=== PATIENT | female | born 1975 | race Caucasian/White ===

== ENCOUNTER 2018-06-28 09:39 | Emergency (ER) | payer MEDICAID ==
[2018-06-28] MEDS ORDERED: LORazepam 1 MG TAB PO PRN (09:45)
[2018-06-28] MEDS ORDERED: chlordiazePOXIDE 25 MG CAP PO ONE (09:45)
[2018-06-28] MEDS ORDERED: LORazepam 2 MG/ML INJ IVP PRN (09:45)
--- NOTE | 2018-06-28 09:45 | EDPHY ---
H & P Source: Patient, EMS Exam Limitations: No limitations Time Seen by Provider: 06/28/18 09:40 HPI/ROS: HPI: This is a 42-year-old female who presents with Chief Complaint: Alcohol withdrawal, request for detox Location: Body Quality: Alcohol abuse, alcohol withdrawal Duration: Less than 12 hr Signs and Symptoms: no fever, + nausea, no vomiting, no hematemesis, no blood in stool, no abdominal bloating, no diarrhea, no back pain, no urinary symptoms , no vaginal bleeding/discharge, no indigestion, no chest pain, no shortness of breath, + anxiety, + tactile disturbances Timing: Acute on chronic Severity: Moderate to severe Context: Patient presents via EMS with complaints of alcohol withdrawal since this morning. She reports that Thursday and Thursday she drank approximately half a gallon of vodka daily. Her last drink was 9:00 p.m. last night. She has a history of alcohol withdrawal but denies any alcohol withdrawal seizures or requiring hospitalization. Patient was discharged on Thursday from [facility] for alcohol detox as she was afraid that she would lose her job. She has now obtained medical leave. She followed up with outpatient clinic, [place], this morning at [facility] and [place], and they called EMS as patient was going through alcohol withdrawal. She has been to [facility] in February and March and wishes to return. She has a strong support system and lives with her sister. Denies any vomiting, abdominal pain, fevers, mental status changes. Patient denies homicidal ideation, suicidal ideation. Modifying Factors: EMS gave Versed 2 mg with moderate relief of symptoms Comment: ROS: A comprehensive 10 system review of systems is otherwise negative aside from elements mentioned in the history of present illness. MEDICAL/SURGICAL/SOCIAL HISTORY: Medical history: Alcohol abuse, major depression, asthma Surgical history: Denies Social history: Employed. Heavy smoker. Family history noncontributory. CONSTITUTIONAL: Polite and cooperative middle-aged white female, awake and alert, no obvious distress HEENT: Atraumatic and normocephalic, PERRL, EOMI. Nares patent; no rhinorrhea; no nasal mucosal edema. Tympanic membranes clear. Oropharynx clear, no exudate and moist pink mucosa. Airway patent. No lymphadenopathy. No meningismus. Cardiovascular: Normal S1/S2, regular rate, regular rhythm, without murmur rub or gallop. PULMONARY/CHEST: Symmetrical and nontender. Clear to auscultation bilaterally. Good air movement. No accessory muscle usage. ABDOMEN: Soft, nondistended, nontender, no rebound, no guarding, no peritoneal signs, no masses or organomegaly. No CVAT. EXTREMITIES: 2/2 pulses, strength 5/5, no deformities, no clubbing, no cyanosis or edema. NEUROLOGICAL: no focal neuro deficits. GCS 15. Speech clear. Mild hand tremors noted bilaterally. SKIN: Warm and dry, no erythema. no rash. Good capillary refill. (Lizzie Gibbs) Constitutional: Initial Vital Signs Heart Rate 81 06/28/18 09:43 Respiratory Rate 16 06/28/18 09:43 Blood Pressure 109/78 06/28/18 09:43 O2 Sat (%) 95 06/28/18 09:43 O2 Delivery Mode Room Air Allergies/Adverse Reactions: cephalexin [From Keflex] Allergy (Verified 06/28/18 09:46) erythromycin base Allergy (Verified 06/28/18 09:46) Sulfa (Sulfonamide Antibiotics) Allergy (Verified 06/28/18 09:46) Home Medications: Medication Instructions Recorded Lexapro 06/28/18 Naltrexone 06/28/18 Ondansetron Odt [Zofran Odt 4 mg 4 mg PO Q4 PRN #12 tab 06/28/18 (*)] Propranolol HCl 06/28/18 chlordiazePOXIDE [Librium 25 mg 25 - 50 mg PO Q6 PRN #15 cap 06/28/18 (*)] Medical Decision Making ED Course/Re-evaluation: I did not see this patient while she was in the emergency department. However her care was discussed with the PA while the patient was in the department. I agree with treatment plan and management (Alex Corona) Vital signs reviewed and stable upon arrival. Placed on saw boss. Given 1 L normal saline, p.o. Librium 50 mg CIWA= 4 upon arrival IV access, laboratory studies, urine drug screen ordered Case management consult for patient to return to the [facility] No signs of delirium tremens, alcohol withdrawal seizures 1022: Urine drug screen positive for benzodiazepines 1033: Laboratory studies reviewed and grossly unremarkable. ETOH=16 1110: [facility] advises that she can be admitted to the facility next Thursday; in 7 days. Sister contracts for the patient's safety and I will give Librium for the next several days for alcohol withdrawal symptoms. This patient was seen under the supervision of my secondary supervising physician. I evaluated and cared for this patient with attending. (Lizzie Gibbs) Differential Diagnosis: Differential diagnosis includes but is not limited to pancreatitis, electrolyte imbalance, dehydration, alcohol withdrawal, delirium tremens, alcohol withdrawal seizures. (Lizzie Gibbs) - Data Points Laboratory Results: Laboratory Results 06/28/18 10:05 06/28/18 10:05 06/28/18 06/28/18 06/28/18 10:05 10:05 10:05 WBC 11.23 10^3/uL H 10^3/uL (3.80-9.50) RBC 5.35 10^6/uL H 10^6/uL (4.18-5.33) Hgb 16.2 g/dL g/dL (12.6-16.3) Hct 48.0 % H % (38.0-47.0) MCV 89.7 fL fL (81.5-99.8) MCH 30.3 pg pg (27.9-34.1) MCHC 33.8 g/dL g/dL (32.4-36.7) RDW 13.5 % % (11.5-15.2) Plt Count 335 10^3/uL 10^3/uL (150-400) MPV 9.4 fL fL (8.7-11.7) Neut % (Auto) 75.0 % H % (39.3-74.2) Lymph % (Auto) 17.5 % % (15.0-45.0) [place] % (Auto) 5.7 % % (4.5-13.0) Eos % (Auto) 0.7 % % (0.6-7.6) Baso % (Auto) 0.7 % % (0.3-1.7) Nucleat RBC Rel Count 0.0 % % (0.0-0.2) Absolute Neuts (auto) 8.43 10^3/uL H 10^3/uL (1.70-6.50) Absolute Lymphs (auto) 1.96 10^3/uL 10^3/uL (1.00-3.00) Absolute Monos (auto) 0.64 10^3/uL 10^3/uL (0.30-0.80) Absolute Eos (auto) 0.08 10^3/uL 10^3/uL (0.03-0.40) Absolute Basos (auto) 0.08 10^3/uL 10^3/uL (0.02-0.10) Absolute Nucleated RBC 0.00 10^3/uL 10^3/uL (0-0.01) Immature Gran % 0.4 % % (0.0-1.1) Immature Gran # 0.04 10^3/uL 10^3/uL (0.00-0.10) Sodium 136 mEq/L mEq/L (135-145) Potassium 4.6 mEq/L mEq/L (3.5-5.2) Chloride 103 mEq/L mEq/L (97-110) Carbon Dioxide 21 mEq/l L mEq/l (22-31) Anion Gap 12 mEq/L mEq/L (6-14) BUN 13 mg/dL mg/dL (7-23) Creatinine 0.7 mg/dL mg/dL (0.6-1.0) Estimated GFR > 60 Glucose 89 mg/dL mg/dL (70-100) Calcium 9.7 mg/dL mg/dL (8.5-10.4) Beta HCG, Qual NEGATIVE Urine Opiates Screen Urine Barbiturates Ur Phencyclidine Scrn Ur Amphetamine Screen U Benzodiazepines Scrn Urine Cocaine Screen U Marijuana (THC) Screen Ethyl Alcohol 16 mg/dL H mg/dL (0-10) 06/28/18 09:50 WBC RBC Hgb Hct MCV MCH MCHC RDW Plt Count MPV Neut % (Auto) Lymph % (Auto) [place] % (Auto) Eos % (Auto) Baso % (Auto) Nucleat RBC Rel Count Absolute Neuts (auto) Absolute Lymphs (auto) Absolute Monos (auto) Absolute Eos (auto) Absolute Basos (auto) Absolute Nucleated RBC Immature Gran % Immature Gran # Sodium Potassium Chloride Carbon Dioxide Anion Gap BUN Creatinine Estimated GFR Glucose Calcium Beta HCG, Qual Urine Opiates Screen NEGATIVE (NEGATIVE) Urine Barbiturates NEGATIVE (NEGATIVE) Ur Phencyclidine Scrn NEGATIVE (NEGATIVE) Ur Amphetamine Screen NEGATIVE (NEGATIVE) U Benzodiazepines Scrn NON-NEGATIVE H (NEGATIVE) Urine Cocaine Screen NEGATIVE (NEGATIVE) U Marijuana (THC) Screen NEGATIVE (NEGATIVE) Ethyl Alcohol Medications Given: Discontinued Medications Chlordiazepoxide HCl (Librium) 50 mg PO EDNOW ONE Stop: 06/28/18 09:46 Last Admin: 06/28/18 10:21 Dose: 50 mg Departure - Departure Disposition: Home, Routine, Self-Care Clinical Impression: Alcohol abuse, daily use, Alcohol withdrawal syndrome without complication Condition: Good Instructions: Abuse of Alcohol (ED), Alcohol Withdrawal (ED), Alcohol Use Disorder (ED) Additional Instructions: Please refrain from using alcohol excessively. Consume a minimum of 8-10 glasses of water or electrolyte fluid replacement drinks that include Gatorade, Powerade, Pedialyte. Eat a bland diet for the next 48 hours and then slowly advance as tolerated. Take Zofran 1 tab every 4 hours as needed for nausea, vomiting. Take Librium 25-50 mg every 6 hr as needed for alcohol withdrawal symptoms. [facility] are [facility] as you are waiting to be admitted to [facility] next Thursday, July 05. Referrals: Patient,NotPresent [Unknown] - As per Instructions [facility] 24 Hours [Outside] - As per Instructions Prescriptions: chlordiazePOXIDE [Librium 25 mg (*)] 25 - 50 mg PO Q6 PRN #15 cap PRN Reason: Seizures Ondansetron Odt [Zofran Odt 4 mg (*)] 4 mg PO Q4 PRN #12 tab PRN Reason: Nausea/Vomiting, Use 1st
[2018-06-28 10:10] LABS: PLATELET COUNT 335 10^3/uL (150-400)
[2018-06-28 11:41] VITALS: BP 129/73
--- NOTE | 2018-06-28 11:57 | ASMTCMCOM ---
CM Note CM Note Notes: Pt presented to the ED for ETOH withdrawal. Pt's last drink was last night. Pt states she drink about "1/2 gallon" of vodka a day. Pt denies any other drug or substance use. Pt denies any mental health history and denies SI/HI. Pt states she left [facility] after being there for only one day about a week ago because she was afraid of losing her job. Pt then relapsed in the past 5-6 days and has been drinking daily again. Pt states her employer has now granted her a leave of absence and is supportive of her seeking treatment. Pt states she went to her intake appt at [facility] ([facility]) in [place] ([phone]) today but because she had started drinking again and is not medically detoxed/stable, they said she will have to go through detox again and make another intake appt. Pt states she has detoxed at home in the past and would prefer to be sent home with Librium if possible. Pt lives with her sister Tiffanie in [place] and also states she has a large supportive family; pt provided Tiffanie's # and this CM called and confirmed that Tiffanie is agreeable to being responsible for administering the Librium as directed. Tiffanie states she feels comfortable with this plan and will keep the Librium in her possession. Tiffanie is at work today until about 1330 so she will take the pt to the pharmacy and fill her Librium Rxn when she gets off work. Pt's niece will come picking table worker pt and transport her home. This CM called [facility] and spoke w/Zachery [facility] ([phone]) and she confirmed that pt could detox at home with her sister to administer the Librium. Ayla scheduled the pt for another intake appt on Wednesday 07/05 at 9:30am and reiterated that the pt cannot present and be in any withdrawal and that would need to perform a breathalyzer and blow zero. This information was relayed to the pt and she verbalized understanding and is appreciative of the new appt. CM also provided pt with [facility] pamphlets (including Behavioral Health) and the local liasons' cards. Pt also provided various info of different types of support groups in the area ([facility], [facility], [facility]). Pt very pleasant, calm and appreciative of assistance. CM available for further assistance if needed. Date Signed: 06/28/2018 11:54 AM Electronically Signed By:Thea Null RN
== END 2018-06-28 11:41 | disposition home or self-care (01) ==
LOC: EDUNIT#
DX: F10.239 Alcohol dependence with withdrawal, unspecified (principal); F17.200 Nicotine dependence, unspecified, uncomplicated
CPT/HCPCS: 80305; G0480

== ENCOUNTER 2018-07-15 11:57 | Emergency (ER) | payer MEDICAID ==
[2018-07-15 13:21] VITALS: BP 110/74
--- NOTE | 2018-07-15 13:33 | EDPHY ---
H & P Stated Complaint: etoh/wants detox Time Seen by Provider: 07/15/18 12:55 HPI/ROS: CHIEF COMPLAINT: Wants alcohol detox HISTORY OF PRESENT ILLNESS: 42-year-old female with alcoholism presents with a chief complaint of wanting alcohol detox. She is currently an outpatient at [facility]. She has been an outpatient alcohol rehab for 3 weeks. Having difficulty maintaining sobriety. Yesterday evening she was at home alone and drank an excessive amount of alcohol. She presents today (accompanied by her nieces) seeking inpatient alcohol rehab. Tentative plan is for her to go to inpatient detox at [facility]. She denies suicidal or homicidal ideation. She has an ongoing cough, without recent change. REVIEW OF SYSTEMS: complete 10 point ROS reviewed and is negative except for the noted elements in the HPI Source: Patient, Family - Personal History LMP (Females 10-55): Over 28 Days Ago Current Tetanus Diphtheria and Acellular Pertussis (TDAP): Yes - Medical/Surgical History Hx Asthma: Yes Hx Chronic Respiratory Disease: No Hx Diabetes: No Hx Cardiac Disease: No Hx Renal Disease: No Hx Cirrhosis: No Hx Alcoholism: Yes Hx HIV/AIDS: No Hx Splenectomy or Spleen Trauma: No Other PMH: etoh hypothyroid back surgery - Family History Significant Family History: No pertinent family hx - Social History Smoking Status: Current every day smoker Alcohol Use: Heavy Drug Use: None - Physical Exam Exam: General Appearance: Alert, pleasant, speech is slightly slurred Eyes: Pupils equal and round, no conjunctival pallor or injection, no nystagmus ENT, Mouth: Mucous membranes moist Neck: Normal inspection Respiratory: Lungs are clear to auscultation Cardiovascular: Regular rate and rhythm Gastrointestinal: Abdomen is soft and nontender Neurological: A&O, nonfocal, normal gait Skin: Warm and dry, no rash Extremities: Nontender, no pedal edema Psychiatric: Mood and affect normal Constitutional: Initial Vital Signs Temperature (C) 37 C 07/15/18 12:02 Heart Rate 64 07/15/18 12:02 Respiratory Rate 17 07/15/18 12:02 Blood Pressure 106/71 07/15/18 12:02 O2 Sat (%) 95 07/15/18 12:02 O2 Delivery Mode Room Air Allergies/Adverse Reactions: cephalexin [From Keflex] Allergy (Verified 07/15/18 12:01) erythromycin base Allergy (Verified 07/15/18 12:01) Sulfa (Sulfonamide Antibiotics) Allergy (Verified 07/15/18 12:01) Home Medications: Medication Instructions Recorded Lexapro 06/28/18 Naltrexone 06/28/18 Propranolol HCl 06/28/18 Medical Decision Making ED Course/Re-evaluation: After I my initial assessment, this patient decided to leave the emergency department. She is not on a mental health hold and she is free to make her own decision. She is a competent decision maker. She was accompanied out of the emergency department by her nieces. She was strongly encouraged to return if she decides on inpatient alcohol rehab. Departure - Departure Disposition: Home, Routine, Self-Care Clinical Impression: Alcoholic intoxication Condition: Good Instructions: Alcohol Intoxication (ED) Referrals: TRINID[facility] BANDA [Other] - As per Instructions
== END 2018-07-15 13:20 | disposition home or self-care (01) ==
DX: F10.129 Alcohol abuse with intoxication, unspecified (principal); E03.9 Hypothyroidism, unspecified; Z87.891 Personal history of nicotine dependence